=== PATIENT | male | born 1950 | race Two or more races ===

== ENCOUNTER 2024-04-03 11:31 | Emergency (ER) | payer MEDICARE, OTHER ==
[~2024-04-03] VITALS: Ht 177.8 cm; Wt 72.6 kg
[~2024-04-03 11:31] MED LIST: INHA1INH6 MC; NAPR-1009 PO
[2024-04-03] MEDS ORDERED: KETO10TA2 PO (12:57)
[2024-04-03] MEDS ORDERED: IBUPROFEN 400 MG TABLET ONE (12:59)
[2024-04-03] MEDS: IBUPROFEN 400 MG TABLET PO ONE (13:03)
[2024-04-03 13:04] VITALS: BP 148/63; TEMP 98; O2SAT 97
== END 2024-04-03 13:05 | disposition home or self-care (01) ==
LOC: ER 11:35
DX: S20.211A Contusion of right front wall of thorax, initial encounter (principal); R07.81 Pleurodynia; W18.39XA Other fall on same level, initial encounter; Y93.89 Activity, other specified; Y92.89 Other specified places as the place of occurrence of the external cause; Y99.8 Other external cause status
CPT/HCPCS: 71100-TC